=== PATIENT | male | born 1955 | race Caucasian/White ===

== ENCOUNTER → 2017-04-11 | Outpatient (CLI) | payer OTHER ==
[~2017-04-11] VITALS: Ht 172.7 cm; Wt 86.6 kg
[~2017-04-11] MED LIST: AMBIEN 10 MG TA10 MG PO; ASPIR-LOW81 MG PO; ATORVASTATIN CA80 MG PO; COREG6.25 MG PO; COUMADIN 3 MG TA3 MG PO; FISH OIL 1,001000 M2 PO; HYDROCHLOROTHIA25 M2 PO; ISENTRESS400 MG PO; LEVOTHYROXINE137 MCG PO; OMEPRAZOLE 20 M20 M1 PO; OXYCODONE HCL 55 MG PO; ROXICODONE5 MG PO; TRUVADA 200 MG1 EACH PO; UNICOMPLEX M TA1 TA1 PO; VITAMIN B-1100 M1 PO; ZOLOFT25 MG PO
--- NOTE | ~2017-04-11 | HPC ---
[facility] [address] [place] [address] PAIN MANAGEMENT CONSULTATION Name: ABBE DOLAN [id number] Admission: 04/11/17 Attend Phys: Nida Aaron MD Discharge: Date of : 53 Report #: [id number] THIS REPORT FOR: //name// CC: RAIZA Steward DATE OF SERVICE: 04/11/2017 FOLLOWUP COMPLAINT: Here for debilitating pain and discomfort in the back and down to the legs. HISTORY OF PRESENT ILLNESS: The patient is a 62-year-old gentleman who has been referred to the pain clinic for evaluation of back and leg pain. The patient states that he was in [place]. He was walking his dog. There were some cobblestones. He stumbled. He noted worsening of pain and discomfort in his back. This was on the 03/02/2017. The pain became worse as time progressed. He began experiencing a sharp, stabbing, constant pain. He notes that the pain was quite problematic. He had difficulty standing for any period of time. Sitting was problematic as well. He noticed that his pain improves somewhat with use of hot showers as well as trying to walk. Medications were somewhat helpful. He describes this discomfort as rhythmic, burning, aching, gnawing and sharp. Rates his pain as an 8/10 at this juncture. He has not had back surgery. He states that he has had a long history of low back pain for greater than 15 years. He returned to [place] where his brother lives. States that he had a CT and MRIs while he was in the hospital, was told that he has some narrowing/stenosis in his low back area. He has been walking with a forward lean/hunched over position since the onset of this discomfort. He was experiencing some numbness. He was experiencing pain and discomfort in the lower portion of his back with pain which has radiated down to the lateral portion of his thighs. He has noted some numbness and weakness in the anterior portion of his legs at this juncture. Walking increases the pain and discomfort, which requires that he slowed down and rest. ALLERGIES: No known drug allergies. CURRENT MEDICATIONS: Coumadin 3-4 mg, Isentress 400 mg b.i.d., Coreg 6.25 mg, Zolpidem 10 mg, hydrochlorothiazide 25 mg, Truvada 300/200, Lipitor 80 mg, omeprazole 20 mg, trazodone 100 mg at bedtime, zolpidem 10 mg, baby aspirin 81 mg, B complex tablet, fish oil 1000 mg t.i.d., multivitamin, Zoloft 25 mg, levothyroxine 0.1375 morning, oxycodone 5 mg q. 4 hours p.r.n. He takes Coumadin. PAST MEDICAL HISTORY: Hypertension, hepatitis, stomach problems, coronary artery disease/heart valve disease. Anxiety, depression, and HIV. [facility] [address] [place] [address] PAIN MANAGEMENT CONSULTATION Name: KELSIABBE ROSA Room #: REG CLKita Quiroz#: [id number] Admission: 04/11/17 Attend Phys: Nida Aaron MD Discharge: Date of : 53 Report #: [id number] PAST SURGICAL HISTORY: Aortic valve replacement, mechanical valve placement 09/2008, inguinal hernia repair in 2001. SOCIAL HISTORY: He is self-employed, works in construction. He is not working at this juncture, has been off since 09/2016. FAMILY HISTORY: Prostate cancer. SOCIAL HISTORY: Again, he is single. Denies use of tobacco, never smoked. Denies use of any illegal drugs or IV drug use. One to two glasses of alcoholic beverages daily 6 per week. REVIEW OF SYSTEMS: Questionnaire in the chart 14-point review recent weight change, fatigue, weakness, headaches, wears glasses, hearing loss. Has difficulty hearing, heart trouble, chest pain, shortness of breath, frequent urination, frequent headaches, memory loss, confusion, nervousness, depression, insomnia, excessive thirst, hot and cold intolerance. Pain impact score 56. LABORATORY DATA: The patient brought his MRI disk and it was reviewed with him and his brother on our computer screen. MRI of the brain without contrast dated 03/21/2017 ventricular and subarachnoid spaces are mildly dilated. Virchow-Andrew spaces in the basal ganglia and cerebellar convexities are dilated. There are small scattered foci of similar signal changes in deep and subcortical white matter of the hemispheres. There is no evidence of intra or extradural hemorrhage or mass effect. There is no abnormal contrast enhancement. No increased signal is evident on diffusion images. The pituitary gland is normal in size. Orbits have a normal appearance. IMPRESSION: 1. Tiny old bilateral cerebral infarcts. 2. Small old lacunar infarcts in the basal ganglia. 3. Mild cerebral atrophy. MRI of the lumbar spine dated 03/21/2017 revealed degenerative changes in anterior vertebral disk and apophyseal joints are present throughout the lumbar spine. There is mild circumferential disk bulging at all levels. Mild L2/L3 and L3/L4 spinal stenosis. Neural foramen are normal in diameter. The conus medullaris is normal in configuration and normal signal intensity. 4. Lumbar vertebrae appear intact with normal alignment. There is marginal ventral osteophyte spurring and degenerative endplate marrow spinal changes. IMPRESSION: 1. Degenerative changes throughout the lumbar spine. 2. Mild L1/L2 and L3/L4 spinal stenosis. CT thoracic spine dated 03/19/2017, mild thoracic scoliosis is present. There is moderate broad lower thoracic kyphosis maximum at T11/T12. Mild reversal of kyphosis is present in the mid thoracic region. Chronic wedge [facility] [address] [place] [address] PAIN MANAGEMENT CONSULTATION Name: ABBE DOLAN Room #: REG CLI [facility]#: [id number] Admission: 04/11/17 Attend Phys: Nida Aaron MD Discharge: Date of : 53 Report #: [id number] configuration at T11 and T12 vertebral bodies are present. Degenerative changes of intervertebral disks are present with reduced disk space, height and endplate irregularity. There is prominent anterior T10/T11, T11/T12 and T12/L1 osteophyte spurring fusion at T10/T11 and T12/L1. Degenerative changes of costovertebral and apophyseal joints are present. The spinal canal and neural foramen are normal in diameter. The thoracic vertebrae appear intact and normal in alignment. IMPRESSION: 1. Moderate lower thoracic kyphosis with mild scoliosis. 2. Degenerative changes in the thoracic spine, most marked at T10-L1. 3. Normal diameter spinal canal and neural foramen. 4. History of osteoarthritis spine. PHYSICAL EXAMINATION: Height 5 feet 10 inches. Weight 190 pounds, BMI is 28. VITAL SIGNS: Blood pressure 142/98, pulse 91, respiratory rate 16, saturation 98%. ECG pulse is normal. Pain intensity 8/10. Fall risk some dizziness needs help standing or walking, not problematic, has fallen in the last 3 months fell while walking his dog. Recommend that the patient be more careful when he is walking his dog and on uneven footing. The patient on blood thinner, Coumadin. We will restart this after the injection today. History of hypertension, continues to monitor blood pressures and continue with antihypertensive therapy. Opioid contract signed 04/23/2017. RISK ASSESSMENT: Evaluated opioid risk tool functional assessment 256/70. Recreational drug use, never. Tobacco use: Never used tobacco. Alcohol use, frequent 1-2 drinks per day total of 6 per week. PHYSICAL EXAMINATION: GENERAL: The patient is a well-developed, well-nourished male, appears his stated age. Orientation: Alert and oriented. Affect is appropriate. HEENT: Head is atraumatic. Eyes PERRLA. Ears, the patient has decreased auditory acuity, has some difficulty hearing. Nose without complaint. Mouth is moist. NECK: Without adenopathy or JVD, one can easily hear the ball valves in his aortic valve, one can feel the opening and closing of the valve. LUNGS: Clear to auscultation. MUSCULOSKELETAL: The patient has some kyphotic/slight scoliosis in the spine. Gait, the patient walks in a somewhat forward leaning gait and appears to be slightly unsteady. Complains of pain in the back with pain radiating down into his legs with numbness in the anterior portion of the thighs. Flexion, the patient stands with a somewhat forward flexed position. Lumbar extension is quite limited. Left and right lateral bending are limited. Left and right lateral rotation are limited. Muscle strength to the upper extremities is judged to be 5/5. Sensation to light touch and pinprick are within normal [facility] [address] [place] [address] PAIN MANAGEMENT CONSULTATION Name: ABBE DOLAN Room #: REG ASHLEY Quiroz#: [id number] Admission: 04/11/17 Attend Phys: Nida Aaron MD Discharge: Date of : 53 Report #: [id number] limits in the upper extremities. Deep tendon reflexes are trace at the biceps, triceps and brachioradialis bilaterally. 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 Straight leg raising is negative. There are no step off noted in the midline back to palpation. Deep tendon reflexes are trace at the knees and at the ankles bilaterally. The patient notes some pain and discomfort in the anterior portion of his thighs with walking and activity. He is able to walk on his heels and toes. Has normal muscular bulk. IMPRESSION: 1. Low back pain with pain in the L2-L3, L3-L4 distribution with increased pain and discomfort with walking and activity. 2. Hypertension. 3. Aortic valve replacement. 4. Anxiety. 5. Depression. 6. Human immunodeficiency virus. RECOMMENDATIONS: We discussed the treatment options with the patient. Risks and benefits of an epidural steroid injection in the L2-L3 area where he is noticing pain and discomfort with activity and walking has been discussed. We explained to the patient that the patients can improve symptomatology associated with pain radiating down into the leg secondary to spinal stenosis with epidural steroid injections. Possible complication of the procedure were discussed. The patient is on a blood thinner and taking Coumadin. At this juncture, we would have him stop taking his medications after he has seen his primary to note whether or not it is reasonable for him to stop this medication. He will check with his doctor. If his doctor feels that it is reasonable, then he will return to the pain clinic at which time he will undergo an epidural steroid injection in the lumbar area to help with the spinal stenosis type symptomatology he is experiencing. He will continue with his current medications. He will call us if he has any concerns. We will consider a more conservative option should the patient elect not to or he is unable to undergo an epidural steroid injection. <ELECTRONICALLY SIGNED> By: Nida Aaron MD 05/02/17 [id number] [id number] Nida Aaron MD /[facility]
[2017-04-11 13:26] VITALS: BP 133/94
== END ==
LOC: PAIN 06:59
DX: M48.061 Spinal stenosis, lumbar region without neurogenic claudication (principal); M47.896 Other spondylosis, lumbar region; M47.895 Other spondylosis, thoracolumbar region; I10 Essential (primary) hypertension; K75.9 Inflammatory liver disease, unspecified; I25.10 Atherosclerotic heart disease of native coronary artery without angina pectoris; F41.9 Anxiety disorder, unspecified; F32.9 Major depressive disorder, single episode, unspecified; B20 Human immunodeficiency virus [HIV] disease; I63.9 Cerebral infarction, unspecified; I63.8 Other cerebral infarction; G46.7 Other lacunar syndromes; G31.89 Other specified degenerative diseases of nervous system; M51.26 Other intervertebral disc displacement, lumbar region; M41.84 Other forms of scoliosis, thoracic region; Z95.2 Presence of prosthetic heart valve

== ENCOUNTER → 2017-04-23 | Outpatient (CLI) | payer OTHER ==
[~2017-04-23] VITALS: Ht 175.3 cm; Wt 86.2 kg
--- NOTE | ~2017-04-23 | HPC ---
[facility] [address] [place] [address] PAIN MANAGEMENT CONSULTATION Name: ABBE DOLAN Room #: REG [facility] [id number] Admission: 04/23/17 Attend Phys: Nida Aaron MD Discharge: Date of : 53 Report #: [id number] THIS REPORT FOR: //name// CC: JOSÉ LUIS Aaron DATE OF SERVICE: 04/23/2017 He is here for the injection and I have stopped my warfarin. FOLLOWUP HISTORY: The patient is a 62-year-old gentleman who has been seen in the Pain Clinic because of pain and discomfort with pain radiating down in his back and his leg. As you recall, he was in [place]. He stumbled while walking on cobblestone. He noted pain and discomfort in his back. Pain continued to worsen over a period of time and got quite problematic. He was having difficulty standing for any period of time because of the pain. He has been experiencing burning discomfort radiating down into the anterior portion of his thigh. He stopped his warfarin. As you recall, he has a [facility]. Xiang's valve in place. He has returned today for treatment. ALLERGIES: No known drug allergies. MEDICATIONS: Coumadin 3-4 mg, Isentress 400 mg b.i.d., Coreg 6.25 mg, zolpidem 10 mg, hydrochlorothiazide 25 mg, Truvada 300/200, Lipitor 80 mg, omeprazole 20 mg, trazodone 100 mg at bedtime, zolpidem 10 mg, baby aspirin 81 mg, B complex tablet, fish oil 1000 mg t.i.d., multivitamin, Zoloft 25 mg, levothyroxine 0.1375 in the morning, oxycodone 5 mg 1 p.o. q.4-6h. p.r.n. PAIN CLINIC ASSESSMENT: 1. History of osteoarthritis of the spine. No history of rheumatoid arthritis. 2. Height 5 foot 9, weight 190 pounds, BMI is 28. 3. VITAL SIGNS: Blood pressure 142/98, pulse 91, respiratory rate 16, and temperature 98. 4. Pain intensity 8. 5. Fall risk from dizziness. The patient does not need assistance while standing or walking. He has fallen in the last 3 months and noticed some problem with his back. He was walking on cobblestone. 6. The patient is on blood thinner and Coumadin. 7. History of hypertension. He has been treated for hypertension, opioid therapies greater than 6 weeks. The patient sign an opioid contract on 04/23/2017. 8. Risk assessment tool. 9. Functional assessment tool 56/70 in regards to general activities, mood, walking ability, work, relationships with other people, sleep, and enjoyment of life. The patient does not smoke cigarettes. [place] [address] PAIN MANAGEMENT CONSULTATION Name: ABBE DOLAN [id number] Admission: 04/23/17 Attend Phys: Nida Aaron MD Discharge: Date of : 53 Report #: [id number] on special occasions. PHYSICAL EXAMINATION: GENERAL: A well-developed white male who appears stated age, alert and oriented x 3. Affect is appropriate. HEENT: Normocephalic, atraumatic. Extraocular eye muscles intact. Hearing within normal limits. No complaint of nasal problems. NECK: Without bruits or masses. LUNGS: Clear to auscultation. HEART: Regular rate. Can feel the percussion of the St. Xiang's valve in place. GAIT: The patient walks with a slow gait with complaint of pain and discomfort in the anterior thigh areas. Muscle strength is judged to be 5/5 in the lower extremities. IMPRESSION: 1. Low back pain with discomfort in the L2-L3, L3-L4 distribution with worsening of pain with walking and activities of daily living. 2. Hypertension. 3. Aortic valve replacement. 4. Anxiety. 5. Depression. 6. Human immunodeficiency virus positive. RECOMMENDATIONS: We discussed treatment options with the patient. Risks and benefits of an epidural steroid injection were again reviewed. They include but are not limited to infection, increased muscle soreness, headaches, bleeding, nerve damage and spinal headache. He elects to proceed. PROCEDURE NOTE: The patient was placed in the prone position. Fluoroscopy was used to identify the L3-L4 interspace. This area had been sterilely prepped with Betadine and infiltrated with 0.25% bupivacaine. A total of 80 mg Depo-Medrol, 40 mg triamcinolone was injected after appropriate targeting using fluoroscopy in the anterior, posterior as well as lateral positioning. The patient tolerated the procedure well. His back was without bleeding. Band-Aid was placed. The patient was then taken to the recovery room where he remained for an appropriate amount of time. He will follow up in the near future as needed. We would like to thank you for letting us participate in his care. <ELECTRONICALLY SIGNED> By: Nida Aaron MD 06/11/17 1415 [id number] Nida Aaron MD /nt
[2017-04-23 08:46] LABS: INR 1.1; PROTIME 11.7 Seconds (9.3-11.4)
[2017-04-23 08:57] VITALS: BP 142/98
== END | disposition home or self-care (01) ==
LOC: PAIN 06:47
PROVIDERS: Anesthesiology Pain Medicine
DX: M54.16 Radiculopathy, lumbar region (principal); I10 Essential (primary) hypertension; F41.8 Other specified anxiety disorders; F32.89 Other specified depressive episodes; Z21 Asymptomatic human immunodeficiency virus [HIV] infection status; Z95.4 Presence of other heart-valve replacement; Z79.01 Long term (current) use of anticoagulants; Z79.82 Long term (current) use of aspirin; Z79.899 Other long term (current) drug therapy